=== PATIENT | male | born 1960 | race African-American/Black ===

== ENCOUNTER 2020-05-13 20:31 | Inpatient (IN) | payer OTHER ==
[2020-05-13 21:27] LABS: BASO % 0.7 % (0-2.0); HEMOGLOBIN 12.9 GM/dL (11.7-16.9); LYMPH % 24.5 % (8-40); MCH 26.5 pg (25.7-33.7); MCHC 32.2 g/dl (32.0-35.9); MEAN CELL VOLUME 82.4 fl (80-96); MEAN PLT VOLUME 8.7 fl (7.5-11.1); MONO % 7.5 % (3.8-10.2); NEUT % 65.3 % (42.8-82.8); PLATELET COUNT 294 K/MM3 (134-434); RBC 4.86 M/mm3 (4.00-5.60); RDW 14.3 % (11.9-15.9); WHITE BLOOD COUNT 7.7 K/mm3 (4.0-10.0)
[2020-05-13 21:40] LABS: ACTIVATED PTT 29.5 SECONDS (25.2-36.5)
[2020-05-13 21:46] LABS: CHLORIDE 105 mmol/L (98-107); SODIUM 136 mmol/L (136-145)
[2020-05-13 21:48] LABS: CALCIUM 8.7 mg/dL (8.5-10.1)
[2020-05-13 21:49] LABS: ALBUMIN 3.5 g/dl (3.4-5.0); ANION GAP 6 MMOL/L (8-16); BLOOD UREA NITROGEN 23.8 mg/dL (7-18); CO2 24 mmol/L (21-32); GLUCOSE,RANDOM 201 mg/dL (74-106)
[2020-05-13 21:52] LABS: CREATININE 1.8 mg/dL (0.55-1.3); SGOT/AST 15 U/L (15-37); SGPT/ALT 29 U/L (13-61)
[2020-05-13 21:53] LABS: BILIRUBIN,TOTAL 0.2 mg/dL (0.2-1); TOT PROT 8.2 g/dl (6.4-8.2)
[2020-05-13 21:55] LABS: ALK PHOS 158 U/L (45-117)
[2020-05-13] MEDS ORDERED: PIPERACILLIN/TAZOB 4.5 GM 4.5 GM in DEXTROSE 5%-WATER 100 ML IVPB ONE (21:57)
[2020-05-13 22:22] LABS: INR 1.01 (0.83-1.09); PROTHROMBIN TIME (PATIENT) 12.2 SEC (9.7-13.0)
[2020-05-13 22:26] LABS: ERYTHROCYTE SEDIMENTATION RATE 34 mm/hr (0-20)
[2020-05-13] MEDS ORDERED: PIPERACILLIN/TAZOB 4.5 GM 4.5 GM/100 ML BAG IVPB ONE (22:34)
[2020-05-14 02:02] LABS: EPI CELLS 2 /uL (0-25.1); HYALINE CASTS 0 /uL (0-3.1); PH,URINE 5.5 (5.0-8.0); URINE APPEARANCE CLEAR; URINE BACTERIA 37 /uL (0-1359); URINE BILIRUBIN NEGATIVE (NEGATIVE); URINE COLOR YELLOW; URINE GLUCOSE (UA) 3+ (NEGATIVE); URINE KETONE NEGATIVE (NEGATIVE); URINE LEUK ESTERASE NEGATIVE (NEGATIVE); URINE NITRITE NEGATIVE (NEGATIVE); URINE PROTEIN 2+ (NEGATIVE); URINE RBC 3 /uL (0-23.9); URINE UROBILINOGEN 0.2 mg/dL (0.2-1.0); URINE WBC 3 /uL (0-25.8)
[2020-05-14] MEDS ORDERED: VANCOMYCIN 1 GM in D5W (PRE-DOCKED) 1,000 MG/250 ML IVPB SCH (03:00)
[2020-05-14] MEDS ORDERED: PNEUMOC 13-VAL CONJ-DIP CRM/PF 0.5 ML DISP.SYRIN IM ONE (04:03)
[2020-05-14 04:04] VITALS: BMI 27.2
[2020-05-14] MEDS ORDERED: PIPERACILLIN/TAZOB 3.375 GM 3.375 GM in DEXTROSE 5%-WATER - 50 ML IVPB SCH (05:00)
[2020-05-14] MEDS ORDERED: PIPERACILLIN/TAZOBACTAM 3.375 GM VIAL IVPB ONE (05:42)
[2020-05-14] MEDS ORDERED: DEXTROSE 5%-WATER - 50 ML IVPB ONE (05:42)
[2020-05-14] MEDS: SODIUM CHLORIDE 1,000 ML IV SCH ×2 (05:51→21:02)
[2020-05-14] MEDS: HEPARIN NA (PORCINE) 5,000 UNITS/ML 1ML VIAL SQ SCH ×3 (06:35→21:03)
[2020-05-14 08:18] LABS: BASO % 0.8 % (0-2.0); EOS % 2.9 % (0-4.5); HEMATOCRIT 40.9 % (35.4-49); HEMOGLOBIN 13.2 GM/dL (11.7-16.9); LYMPH % 27.3 % (8-40); MCH 26.6 pg (25.7-33.7); MCHC 32.4 g/dl (32.0-35.9); MEAN CELL VOLUME 82.2 fl (80-96); MEAN PLT VOLUME 8.7 fl (7.5-11.1); MONO % 9.6 % (3.8-10.2); NEUT % 59.4 % (42.8-82.8); PLATELET COUNT 291 K/MM3 (134-434); RBC 4.97 M/mm3 (4.00-5.60); RDW 14.3 % (11.9-15.9); WHITE BLOOD COUNT 6.2 K/mm3 (4.0-10.0)
[2020-05-14] MEDS: INSULIN SLIDING SCALE (NOVOLOG) 1 VIAL SQ SCH ×4 (08:21→21:03)
[2020-05-14 08:44] LABS: ALBUMIN 3.2 g/dl (3.4-5.0); BLOOD UREA NITROGEN 24.2 mg/dL (7-18)
[2020-05-14 08:47] LABS: CREATININE 1.8 mg/dL (0.55-1.3)
[2020-05-14 08:48] LABS: PHOSPHOROUS 4.5 mg/dL (2.5-4.9)
[2020-05-14 08:49] LABS: BILIRUBIN,TOTAL 0.5 mg/dL (0.2-1); TOT PROT 7.7 g/dl (6.4-8.2)
[2020-05-14] MEDS ORDERED: PT OWN MED DRAWER 7, Y5N ONE (09:07)
[2020-05-14] MEDS ORDERED: PNEUMOCOCCAL 23 VACCINE 0.5 ML VIAL IM ONE (10:00)
[2020-05-14] MEDS ORDERED: THIAMINE HCL 200 MG/2 ML VIAL IVPB ONE (10:02)
[2020-05-14] MEDS: INSULIN (LEVEMIR) 100 UNITS/ML UNITS SQ SCH (21:03)
[2020-05-14] MEDS: ATORVASTATIN CA 20 MG TABLET (FP) PO SCH (21:04)
[2020-05-14] MEDS ORDERED: INSULIN (LEVEMIR) 100 UNITS/ML UNITS SQ SCH (22:00)
[2020-05-15] MEDS ORDERED: PIPERACILLIN/TAZOB 3.375 GM 3.375 GM in DEXTROSE 5%-WATER - 50 ML IVPB SCH (02:00)
[2020-05-15] MEDS ORDERED: VANCOMYCIN 1 GM in D5W (PRE-DOCKED) 1,000 MG/250 ML IVPB SCH (03:00)
[2020-05-15] MEDS: SODIUM CHLORIDE 1,000 ML IV SCH (06:47)
[2020-05-15] MEDS: INSULIN (LEVEMIR) 100 UNITS/ML UNITS SQ SCH ×2 (06:51→21:54)
[2020-05-15] MEDS: INSULIN SLIDING SCALE (NOVOLOG) 1 VIAL SQ SCH ×4 (06:51→22:00)
[2020-05-15] MEDS: HEPARIN NA (PORCINE) 5,000 UNITS/ML 1ML VIAL SQ SCH ×4 (06:58→21:54)
[2020-05-15 09:17] LABS: BASO % 1.2 % (0-2.0); HEMATOCRIT 40.3 % (35.4-49); HEMOGLOBIN 13.1 GM/dL (11.7-16.9); LYMPH % 28.5 % (8-40); MCH 26.6 pg (25.7-33.7); MCHC 32.5 g/dl (32.0-35.9); MEAN CELL VOLUME 81.7 fl (80-96); MEAN PLT VOLUME 8.9 fl (7.5-11.1); MONO % 8.4 % (3.8-10.2); NEUT % 58.9 % (42.8-82.8); PLATELET COUNT 278 K/MM3 (134-434); RBC 4.93 M/mm3 (4.00-5.60); RDW 14.3 % (11.9-15.9)
[2020-05-15] MEDS: THIAMINE HCL 100 MG TABLET (FP) PO SCH (09:53)
[2020-05-15 09:54] LABS: CALCIUM 8.7 mg/dL (8.5-10.1)
[2020-05-15 09:55] LABS: BLOOD UREA NITROGEN 19.4 mg/dL (7-18); MAGNESIUM 2.2 mg/dL (1.8-2.4)
[2020-05-15 09:57] LABS: ALBUMIN 3.1 g/dl (3.4-5.0)
[2020-05-15 09:58] LABS: CREATININE 1.6 mg/dL (0.55-1.3)
[2020-05-15 10:00] LABS: BILIRUBIN,TOTAL 0.4 mg/dL (0.2-1); TOT PROT 7.8 g/dl (6.4-8.2)
[2020-05-15] MEDS ORDERED: LOSARTAN POTASSIUM 25 MG TABLET PO SCH (10:00)
[2020-05-15] MEDS ORDERED: metoPROLOL SUCCINATE 25 MG TAB.SR.24H (FP) PO SCH (10:00)
[2020-05-15] MEDS ORDERED: INSULIN (NOVOLOG) ASPART 100 UNITS/ML 10ML VIAL ONE (21:21)
[2020-05-15] MEDS: ATORVASTATIN CA 20 MG TABLET (FP) PO SCH (21:55)
[2020-05-16] MEDS: HEPARIN NA (PORCINE) 5,000 UNITS/ML 1ML VIAL SQ SCH ×2 (06:35→14:55)
[2020-05-16] MEDS: INSULIN (LEVEMIR) 100 UNITS/ML UNITS SQ SCH (06:36)
[2020-05-16] MEDS: INSULIN SLIDING SCALE (NOVOLOG) 1 VIAL SQ SCH ×3 (06:37→16:52)
[2020-05-16 08:32] LABS: HEMATOCRIT 40.7 % (35.4-49); HEMOGLOBIN 13.3 GM/dL (11.7-16.9); MCH 26.9 pg (25.7-33.7); MCHC 32.6 g/dl (32.0-35.9); MEAN CELL VOLUME 82.4 fl (80-96); PLATELET COUNT 281 K/MM3 (134-434); RBC 4.94 M/mm3 (4.00-5.60); RDW 14.2 % (11.9-15.9); WHITE BLOOD COUNT 4.9 K/mm3 (4.0-10.0)
[2020-05-16 08:46] LABS: BLOOD UREA NITROGEN 22.1 mg/dL (7-18)
[2020-05-16 08:49] LABS: CREATININE 1.4 mg/dL (0.55-1.3)
[2020-05-16] MEDS ORDERED: LOSARTAN POTASSIUM 25 MG TABLET PO SCH (11:58)
[2020-05-16] MEDS: THIAMINE HCL 100 MG TABLET (FP) PO SCH (12:34)
[2020-05-16 14:15] VITALS: BP 154/94; PULSE 90; TEMP 97.4
== END 2020-05-16 21:20 | disposition home or self-care (01) | DRG 380 ==
LOC: JER 20:31 → JERBED 22:42 → J7W 05-14 01:27
PROVIDERS: ADMIT Hospitalist; ATTEND Internal Medicine
DX: E11.621 Type 2 diabetes mellitus with foot ulcer (principal); L97.528 Non-pressure chronic ulcer of other part of left foot with other specified severity; A52.16 Charcot's arthropathy (tabetic); I10 Essential (primary) hypertension; I16.0 Hypertensive urgency; F10.20 Alcohol dependence, uncomplicated; E11.610 Type 2 diabetes mellitus with diabetic neuropathic arthropathy; E78.5 Hyperlipidemia, unspecified; D63.1 Anemia in chronic kidney disease; N17.9 Acute kidney failure, unspecified; I12.9 Hypertensive chronic kidney disease with stage 1 through stage 4 chronic kidney disease, or unspecified chronic kidney disease; E11.22 Type 2 diabetes mellitus with diabetic chronic kidney disease; N18.30 Chronic kidney disease, stage 3 unspecified; Z89.422 Acquired absence of other left toe(s)
CPT/HCPCS: 36415; 71045-TC-FY; 73630-TC-LT; 80048; 80053; 80307; 81003; 82565; 82962; 83605; 83735; 84100; 84156; 84300; 85025; 85027; 85610; 85651; 85730; 86140; 86850; 86900; 86901; 87040; 87070; 87076; 87086; 87186; 87205; 93005; 93010; 99285-25; C9803; J1644; U0003